=== PATIENT | female | born 1985 | race Two or more races ===

== ENCOUNTER 2020-09-12 05:05 | Day surgery (SDC) | payer OTHER ==
[~2020-09-12 05:05] MED LIST: LEVOTHYROXINE25 MCG PO
[2020-09-12] MEDS ORDERED: CODE1TAB37 PO (11:33)
[2020-09-12] MEDS ORDERED: DOXYCYCLINE HY100 M2 PO (11:34)
== END 2020-09-12 13:45 | disposition home or self-care (01) ==
LOC: CIR.AMB 05:05
PROVIDERS: ATTEND Obstetrics & Gynecology
DX: Z30.2 Encounter for sterilization (principal); N70.11 Chronic salpingitis; N73.6 Female pelvic peritoneal adhesions (postinfective); Z20.822 Contact with and (suspected) exposure to COVID-19

== ENCOUNTER 2022-05-12 10:06 | Outpatient (CLI) | payer OTHER ==
[~2022-05-12 10:06] MED LIST changes: +CODE1TAB37 PO; +DOXYCYCLINE HY100 M2 PO
== END 2022-05-12 10:10 | disposition home or self-care (01) ==
LOC: NUCLEAR 10:06
PROVIDERS: ATTEND Internal Medicine Cardiovascular Disease
DX: I11.9 Hypertensive heart disease without heart failure (principal); I49.9 Cardiac arrhythmia, unspecified; R07.9 Chest pain, unspecified

== ENCOUNTER 2022-05-25 07:30 | Outpatient (CLI) | payer OTHER | END 2022-05-25 07:34 | disposition home or self-care (01) | LOC: NUCLEAR 07:30 | PROVIDERS: ATTEND Internal Medicine Cardiovascular Disease | DX: I25.119 Atherosclerotic heart disease of native coronary artery with unspecified angina pectoris (principal) | CPT/HCPCS: 78452; 93017; A9500 ==